=== PATIENT | male | born 1990 | race Caucasian/White ===

== ENCOUNTER 2025-06-12 06:15 | Emergency (ER) | payer OTHER, SELFPAY ==
[2025-06-12 06:19] VITALS: BP 152/92
[2025-06-12 06:31] VITALS: BP 137/90
[2025-06-12 06:32] VITALS: BMI 22.2
--- NOTE | 2025-06-12 06:55 | ED.GENMED ---
History of Present Illness
<Shanel Mota MD, Resident - Last Filed: 06/12/25 11:13>
General
Chief Complaint: Flank Pain
Source: patient
Exam Limitations: none
Time Seen by Provider: 06/12/25 06:26
Nursing documentation reviewed up to this point in time: agreed with
History of Present Illness
History of Present Illness:
Mr. Main Lundy is a 35-year-old male who presents with right flank pain since 12 AM today. The pain increases to 10 out of 10 at times, with nausea and vomiting. The pain radiates from his right flank around his side to the front.
Before going to sleep at 12 AM he ate putamina crackers, milk, and hazelnuts. At 3 AM he woke up with a 10 out of 10 pain, but thought he could wait until urgent care or open in the morning. When his father woke up at around 5/6 AM, they decided
to go to the ED due to the patient's severe pain and since urgent care had not opened. He endorses urinary urgency and frequency; denies pain with urination and hematuria.
He denies diarrhea, eating anything new recently other than hazelnuts. He denies using alcohol, recreational drugs, or caffeinated beverages. He drinks noncaffeinated tea.
Review of Systems
<Shanel Mota MD, Resident - Last Filed: 06/12/25 11:13>
Review of Systems
All Other Systems: ROS reviewed and negative except as documented in HPI and ROS
Phy Exam
<Shanel Mota MD, Resident - Last Filed: 06/12/25 11:13>
Physical Exam
Physical Exam:
General: AO x 3, alert, in no acute distress, moist mucous membranes
Abdomen: Mild tenderness to palpation at the right upper quadrant. No suprapubic tenderness
Normal bowel sounds
Spine: No CVA tenderness bilaterally, but tenderness to palpation at the right flank.
No back pain to shoulder flexion extension and abduction.
Cardiovascular: Normal rate and rhythm, radial pulses 2+ bilaterally
No pedal edema
Lungs: Clear to auscultation bilaterally
HEENT: No cervical lymphadenopathy
Course
<Shanel Mota MD, Resident - Last Filed: 06/12/25 11:13>
Orders/Labs/Results
Orders:
Orders
06/12/25 06:57
Renal Only US [US Renal Only W/O Bladder] Urgent
Comment:
Reason For Exam: right flank pain
06/12/25 06:58
Ketorolac [Toradol] 15 mg IV NOW STA
CR Abdomen - 1 View Urgent
Comment:
Reason For Exam: right flank pain
06/12/25 06:59
Ondansetron Injectable [Zofran] 4 mg IV NOW STA
06/12/25 07:04
Complete Blood Count/With Diff Urgent
Comprehensive Metabolic Panel Urgent
Lipase Urgent
Urinalysis Reflex To Culture Urgent
Date Specimen was Collected: 06/12/25
Time Specimen was Collected: 07:01
Urine Microscopic Reflex Cult Urgent
06/12/25 08:47
CT Abd/pel Without Iv Or Oral Urgent
Comment:
Reason For Exam: renal stones sizes; R hydronephrosis, b/l stones
Abnormal Lab Results
06/12/25
07:04
MPV 10.5 H fL
(7.4-10.4)
Absolute Neuts (auto) 6.8 H 10^3/uL
(1.4-6.5)
Absolute Monos (auto) 0.8 H 10^3/uL
(0.1-0.6)
Neutrophils % 76.7 H %
(42.2-75.2)
Lymphocytes % 13.1 L %
(20.5-51.1)
Glucose 105 H mg/dl
(70-99)
Calcium 11.0 H mg/dl
(8.4-10.2)
Urine Ketones 3+ A
(Negative)
Ur Occult Blood Reflex 4+ A
(Negative)
Urine RBC 50-60 A /HPF
(0-2)
Urine Bacteria (Reflex) Few A
(Negative)
Urine Albumin (Reflex) 2+ A
(Neg - Trace)
06/12/25 07:04
06/12/25 07:04
Vital Signs
Initial and Last Documented VS:
Initial Vital Signs
Temp Pulse Resp BP Pulse Ox
97.6 F 58 16 152/92 100
06/12/25 06:19 06/12/25 06:19 06/12/25 06:19 06/12/25 06:19 06/12/25 06:19
Last Documented Vital Signs
Temp Pulse Resp BP Pulse Ox
97.6 F 70 16 127/81 98
06/12/25 06:19 06/12/25 11:04 06/12/25 11:04 06/12/25 11:04 06/12/25 11:04
<Gurpreet Holman, DO - Last Filed: 06/12/25 09:39>
Orders/Labs/Results
Orders:
Orders
06/12/25 06:57
Renal Only US [US Renal Only W/O Bladder] Urgent
Comment:
Reason For Exam: right flank pain
06/12/25 06:58
Ketorolac [Toradol] 15 mg IV NOW STA
CR Abdomen - 1 View Urgent
Comment:
Reason For Exam: right flank pain
06/12/25 06:59
Ondansetron Injectable [Zofran] 4 mg IV NOW STA
06/12/25 07:04
Complete Blood Count/With Diff Urgent
Comprehensive Metabolic Panel Urgent
Lipase Urgent
Urinalysis Reflex To Culture Urgent
Date Specimen was Collected: 06/12/25
Time Specimen was Collected: 07:01
Urine Microscopic Reflex Cult Urgent
06/12/25 08:47
CT Abd/pel Without Iv Or Oral Urgent
Comment:
Reason For Exam: renal stones sizes; R hydronephrosis, b/l stones
Abnormal Lab Results
06/12/25
07:04
MPV 10.5 H fL
(7.4-10.4)
Absolute Neuts (auto) 6.8 H 10^3/uL
(1.4-6.5)
Absolute Monos (auto) 0.8 H 10^3/uL
(0.1-0.6)
Neutrophils % 76.7 H %
(42.2-75.2)
Lymphocytes % 13.1 L %
(20.5-51.1)
Glucose 105 H mg/dl
(70-99)
Calcium 11.0 H mg/dl
(8.4-10.2)
Urine Ketones 3+ A
(Negative)
Ur Occult Blood Reflex 4+ A
(Negative)
Urine RBC 50-60 A /HPF
(0-2)
Urine Bacteria (Reflex) Few A
(Negative)
Urine Albumin (Reflex) 2+ A
(Neg - Trace)
06/12/25 07:04
06/12/25 07:04
Vital Signs
Initial and Last Documented VS:
Initial Vital Signs
Temp Pulse Resp BP Pulse Ox
97.6 F 58 16 152/92 100
06/12/25 06:19 06/12/25 06:19 06/12/25 06:19 06/12/25 06:19 06/12/25 06:19
Last Documented Vital Signs
Temp Pulse Resp BP Pulse Ox
97.6 F 70 16 127/81 98
06/12/25 06:19 06/12/25 11:04 06/12/25 11:04 06/12/25 11:04 06/12/25 11:04
<Shanel Mota MD, Resident - Last Filed: 06/12/25 11:13>
MDM/Problems Addressed
Differential Diagnosis Includes:
Kidney stone
Gallstone
MSK origin of pain
PUD in duodenum or stomach
MDM/Problems Addressed:
Mr. Main Lundy is a 35-year-old male presenting with episodic right flank pain for 6 hours with associated urinary urgency/frequency and radiation to the side to the front. Based on the medical symptoms, high suspicion for right kidney stone.
Renal ultrasound: Bilateral intrarenal stones right hydronephrosis
Abdominal x-ray: opaque stones not visualized
Urinalysis with reflex to culture: Microscopic hematuria
CMP, CBC, lipase: WNL
IV Toradol 15 mg
IV Zofran [address] abdomen/pelvis noncontrast: Largest kidney stone is 2 mm and at right ureterovesical junction.
Given the largest kidney stone is less than 5 mm, we will inform the patient that the stone will most likely pass naturally and to take [id number] pain medication as needed.
<Shanel Mota MD, Resident - Last Filed: 06/12/25 11:13>
*Radiology
Radiology exam reviewed: radiology read reviewed
*Pulse Oximetry
SaO2: 98
Oxygen Mode of Delivery: Room air
Patient hypoxic: no
*EKG
Interpreted by ED Provider?: NA
*Gig Tender Interpretation
Rate: normal
Interpretation: normal
Rhythm: sinus
*Critical Care Note
Total Time (30-74mins, 75-104mins- exclusive of procedures): Not Applicable
ED Attending Note
<Shanel Mota MD, Resident - Last Filed: 06/12/25 11:13>
-
Portions of this chart may have been created with voice recognition software.� Occasional wrong word or��sound alike� substitutions may have occurred due to the inherent limitations of voice recognition software.
<Gurpreet Holman, DO - Last Filed: 06/12/25 09:39>
ED Attending Note
Patient seen and examined by attending physician: Yes
I performed a history and physical exam of patient and discussed management with resident, I reviewed resident's note and agree with documented findings and plan of care.: Yes
ED Attending Note:
I reviewed and agree with history and treatment plan by Shanel Mota MD. My exam revealed 35-year-old male no acute distress. Patient improved after IV Toradol. Ultrasound showing right hydronephrosis, urinalysis consistent with hematuria, but no
findings of infection. Will check CT scan to further evaluate.
Discharge Plan
Departure
Patient Disposition: Home (Routine Discharge)
Date of Disposition: 06/12/25
Time of Disposition: 11:02
Patient with high blood pressure during this ER visit?: No
Discharge Problem:
Kidney stone
Instructions: Kidney Stones (DC)
Referrals:
Dalton Brown MD [Active, Urology]
Referral Note: 2mm stone at right UVJ.
Instructed pt to f/u if needed
Estella Diana MD [Family Provider, Internal Medicine]
Activity Restrictions/Additional Instructions:
Dear Main you came to the ED for right flank pain. You were diagnosed with a kidney stone. The kidney stone was small, it should pass naturally. Will further take [id number] pain medication as needed. You can follow-up with a urologist
if needed (such as if you do not pass the kidney stone within 1 to 2 weeks). You may contact the office of urologist Dr. Dalton Brown ([phone]).
You were provided with a strainer that you can use to collect the kidney stone if you see it. You may store it in a dry container and bring it to a doctor's office.
Please return if you develop signs of infection (fever/chills, pus in urine), abdominal pain, blood in urine.
Interventions
Interventions:
*Risk Screen - Suicide Last Done: 06/12/25 06:19
*General Assessment Last Done: 06/12/25 06:32
*Neglect/Abuse Screening Last Done: 06/12/25 06:52
*ED- Fall Risk Assessment Last Done: 06/12/25 06:32
*ED COVID-19 Vaccine History Last Done: 06/12/25 06:32
*Nursing Disposition Last Done: 06/12/25 11:09
QI-Eucmxb-Autimjsxsw Assessment Last Done: 06/12/25 06:32
ED-Male Genitourinary Assessment Last Done: 06/12/25 06:32
Discharge Date and Time
Print Language: SLOVAK
[2025-06-12 07:00] VITALS: BP 131/86
[2025-06-12] MEDS: ZOFRAN 4 MG IV (07:05)
[2025-06-12] MEDS: TORADOL 15 MG IV (07:05)
[2025-06-12 07:26] LABS: Hematocrit 43.2 % (39.0-52.0); Hemoglobin 15.0 g/dL (13.0-18.0); Mean Corp Hgb Conc. 34.7 g/dL (33.0-37.0); Mean Corpuscular Volume 84.2 fL (80.0-94.0); Nucleated Red Blood Cells % 0 % (-); Platelet Count 237 10^3/uL (130-400); Red Cell Dist. Width 12.3 % (11.5-14.5)
[2025-06-12 07:28] LABS: Urine Character Clear (Clear)
[2025-06-12 07:46] LABS: Urine Squamous Cell 0-2 /LPF (Few); Urine Urothelial Cell 0-2 /LPF (FEW)
[2025-06-12 07:47] LABS: ALT (SGPT) 18 U/L (0-50); AST (SGOT) 20 U/L (17-59); Albumin 4.6 g/dl (3.5-5.0); Alkaline Phosphatase 63 U/L (38-126); Blood Urea Nitrogen 18 mg/dl (9-20); Calcium 11.0 mg/dl (8.4-10.2); Carbon Dioxide 26 mmol/L (22-30); Chloride 105 mmol/L (98-107); Estimated Creatinine Clearance 89 ml/min; Glucose 105 mg/dl (70-99); Lipase 120 U/L (23-300); Potassium 4.7 mmol/L (3.5-5.1); Sodium 135 mmol/L (135-145); Total Protein 7.2 g/dl (6.3-8.2); eGFR > 60.00
[2025-06-12 07:48] LABS: Urine Red Blood Cell 50-60 /HPF (0-2)
[2025-06-12 07:49] LABS: Urine White Cell 0-2 /HPF (0-5)
[2025-06-12 09:01] VITALS: BP 124/79
[2025-06-12 11:04] VITALS: BP 127/81
== END 2025-06-12 11:16 | disposition home or self-care (01) ==
LOC: EMR 06:15
PROVIDERS: EMERGENCY PHYSICIAN Emergency Medicine; FAMILY PHYSICIAN Internal Medicine
DX: N13.2 Hydronephrosis with renal and ureteral calculous obstruction (principal); R11.2 Nausea with vomiting, unspecified
CPT/HCPCS: 96374; 96375; 99284; 74018; 74176; 76775; 80053; 81003; 81015; 83690; 85025